=== PATIENT | male | born 1955 | race Caucasian/White ===

== ENCOUNTER → 2018-11-06 10:04 | Outpatient (CLI) | payer MEDICARE, SELFPAY ==
--- NOTE | 2018-11-06 10:08 | MR_ITS ---
MR head/brain wo con HISTORY: ITS.REASON: DIZZINESS, MEMORY LOSS ORDERING PHYSICIAN: Katya Fonseca APRN PATIENT AGE: 63 years Comparison: None TECHNIQUE: Standard multiplanar multiecho sequences are performed without contrast. FINDINGS: There is diffuse restricted diffusion within the cortex of the left occipital lobe and parieto-occipital junction with increased as well as the posterior aspect of the right occipital lobe demonstrating increased DWI signal and decrease ADC signal with a gyriform pattern/cortical ribbon sign. Similar abnormal signal intensity is noted in the left frontal lobe and in the right posterior parietal lobe.. There is generalized atrophy. No midline shift or mass effect is evident. No midline shift or mass effect is evident. The cerebellopontine angles, cerebellum, and brainstem and midbrain have an unremarkable appearance. Craniocervical junction, pituitary, optic chiasm, and corpus callosum are unremarkable. Incidental note is made of a small hypoechoic intense subcutaneous nodule in the left occipital area at 8 mm may be due to a sebaceous cyst. No mastoid effusion or sinus air-fluid level. IMPRESSION: There is abnormal DWI and ADC signal demonstrating a cortical ribbon pattern of the gyri in the left frontal, bilateral parietal, and bilateral occipital regions left more severe than right. There is also associated generalized atrophy. 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 Differential diagnosis would include autoimmune encephalitis, hypoxic/anoxic brain injury, encephalitis, encephalopathy and mitochondrial disease.
== END ==
PROVIDERS: PCP Nurse Practitioner; Visit Provider Nurse Practitioner
DX: R42 Dizziness and giddiness (principal); R41.3 Other amnesia
CPT/HCPCS: 70551